=== PATIENT | female | born 1960 | race Caucasian/White ===

== ENCOUNTER → 2022-01-06 15:11 | Outpatient (CLI) | payer BC, SELFPAY ==
[2022-01-06 18:13] LABS: Thyroid Stimulating Hormone 0.03 uIU/mL (0.465-4.68)
[2022-01-06 18:30] LABS: Hemoglobin A1C 6.7 % (4.0-6.0)
[2022-01-08 08:34] LABS: Triiodothyronine (T3) Free 3.3 pg/mL (2.0-4.4)
[2022-01-09 12:21] LABS: Free T4 (Free Thyroxine) 1.58 ng/dl (0.78-2.19)
== END ==
PROVIDERS: PCP Nurse Practitioner Family; Visit Provider Nurse Practitioner Family
DX: E89.0 Postprocedural hypothyroidism (principal); E03.9 Hypothyroidism, unspecified; Z13.1 Encounter for screening for diabetes mellitus
CPT/HCPCS: 36415; 83036; 84439; 84443; 84481

== ENCOUNTER 2025-02-27 09:40 | Outpatient (CLI) | payer BC, SELFPAY ==
[2025-02-27 10:41] LABS: Hemoglobin A1C 6.6 % (4.0-6.0)
[2025-02-27 11:09] LABS: Free T4 (Free Thyroxine) 1.11 ng/dl (0.78-2.19)
[2025-02-27 11:40] LABS: Alanine Aminotransferase 29 U/L (12-78); Albumin Level 4.6 g/dl (3.5-5.0); Albumin/Globulin Ratio 2.0 (1.1-1.8); Alkaline Phosphatase 97 U/L (38-126); Anion Gap 15.8 mEq/L (5-15); Aspartate Amino Transferase 31 U/L (14-36); Bilirubin,Total 0.6 mg/dl (0.2-1.3); Blood Urea Nitrogen 13 mg/dl (7-17); Calcium 9.4 mg/dl (8.4-10.2); Carbon Dioxide 28 mmol/L (22.0-30.0); Chloride 100 mmol/L (98-107); Cholesterol 176 mg/dl (140-200); Creatinine,Serum 0.70 mg/dl (0.52-1.04); Estimated Glomerular Filt Rate 85 ml/min (>60); GFR (African American) 102 ML/MIN (>60); Globulin 2.3 g/dL (1.3-3.2); Glucose 125 mg/dl (74-100); HDL Cholesterol 53 mg/dl (40-60); Potassium 4.8 mmoL/L (3.5-5.1); Sodium 139 mmol/L (136-145); Total Protein,Serum 6.9 g/dl (6.3-8.2); Triglycerides 122 mg/dl (30-150)
[2025-02-27 12:11] LABS: Thyroid Stimulating Hormone 4.73 uIU/mL (0.465-4.68)
== END 2025-02-27 23:59 | disposition home or self-care (01) ==
LOC: LAB 09:44
PROVIDERS: PCP Nurse Practitioner; Visit Provider Nurse Practitioner
DX: E03.9 Hypothyroidism, unspecified (principal); I10 Essential (primary) hypertension; E78.9 Disorder of lipoprotein metabolism, unspecified; E11.9 Type 2 diabetes mellitus without complications
CPT/HCPCS: 36415; 80053; 80061; 83036; 84439; 84443; 84480